=== PATIENT | female | born 1985 | race Hispanic/Latino ===

== ENCOUNTER 2023-04-29 11:06 | Observation (INO) | payer MEDICAID, SELFPAY ==
[2023-04-29] MEDS ORDERED: fentaNYL 50 mcg/mL 1 mL Vial ONE (11:47)
[2023-04-29 12:10] LABS: #Monocytes 0.6 thou/uL (0.11-0.59); #Neutrophils 7.8 thou/uL (1.40-6.50); %Basophils 0.2 % (0.0-1.0); %Lymphocytes 14.8 % (21.0-51.0); %Monocytes 6.4 % (0.0-10.0); %Neutrophils 78.4 % (42.0-75.0); Hematocrit 39.5 % (36.0-47.0); Hemoglobin 13.3 g/dL (12.0-16.0); Mean Corpuscular HGB CONC 33.7 g/dL (32.0-36.0); Mean Corpuscular Hemoglobin 29.8 pg (27.0-31.0); Mean Corpuscular Volume 88.6 fl (78.0-98.0); Mean Platelet Volume 9.4 fL (7.4-10.4); Platelet Count 430 10x3/uL (130-400); RBC Distribution Width 14.5 % (11.5-14.5); Red Blood Cell (RBC) Count 4.46 mill/uL (4.20-5.40); White Blood Cell (WBC) Count 9.9 10x3/uL (4.8-10.8)
[2023-04-29 12:26] LABS: BHCG - Serum Negative (NEGATIVE); Pregs Control Background? CLEAR/WHITE (CLR/WHITE); Pregs Control Bar Appear? YES (CONTROL BAR)
[2023-04-29 12:41] LABS: ALT (SGPT) 15 U/L (8-55); AST (SGOT) 18 U/L (5-34); Alkaline Phosphatase 77 U/L (40-110); Anion Gap 19 mmol/L (10-20); BUN (Urea Nitrogen) 16 mg/dL (7.0-18.7); Bilirubin, Total 0.6 mg/dL (0.2-1.2); Calc. Creatinine Clearance 0 mL/min (70-130); Calcium 9.4 mg/dL (7.8-10.44); Carbon Dioxide 19 mmol/L (22-29); Chloride 100 mmol/L (98-107); Estimated GFR 105; Globulin 3.2 g/dL (2.4-3.5); Glucose 76 mg/dL (70-105); Lipase 31 U/L (8-78); Potassium 3.9 mmol/L (3.5-5.1); Protein, Total 7.2 g/dL (6.0-8.3); Sodium 134 mmol/L (136-145)
[2023-04-29] MEDS ORDERED: Iopamidol-370 76% 500 ML MDV (1 ML CHARGE) ONE (12:47)
[2023-04-29] MEDS ORDERED: Morphine 4 MG/ML VIAL ONE ×2 (12:49→17:24)
[2023-04-29] MEDS ORDERED: Boostrix 0.5 ML (Tdap) VIAL (>/=7 yrs of age) ONE (14:21)
[2023-04-29] MEDS ORDERED: Ondansetron PF 4 MG/2 ML Vial ONE ×2 (14:21→17:24)
[2023-04-29] MEDS ORDERED: Ketorolac Tromethamine 30 MG/ML VIAL ONE (14:21)
[2023-04-29] MEDS ORDERED: Ipratropium/Albuterol 3 ML NEB NEB PRN (17:37)
[2023-04-29] MEDS ORDERED: hydrALAZINE 20 MG/ML VIAL SLOW IVP PRN (17:37)
[2023-04-29] MEDS ORDERED: Dextrose 50% Abboject 50 ML SYRINGE SLOW IVP PRN (17:37)
[2023-04-29] MEDS ORDERED: Dextrose 5% in Water 1,000 ML IV PRN (17:37)
[2023-04-29] MEDS ORDERED: Glucagon 1 MG/ML KIT IM PRN (17:37)
[2023-04-29] MEDS ORDERED: TETANUS, DIPHTHERIA TOX,ADULT (TDVAX) 0.5 ML VIAL IM ONE (17:37)
[2023-04-29 19:39] VITALS: BMI 25.9
[2023-04-29] MEDS: Sodium Chloride 0.9% 1,000 ML IV SCH (20:12)
[2023-04-29] MEDS: Morphine 2 MG/ML VIAL SLOW IVP PRN (20:12)
[2023-04-29] MEDS: Famotidine/PF 20 mg/2ml Vial SLOW IVP SCH (20:13)
[2023-04-29] MEDS: Ondansetron PF 4 MG/2 ML Vial IVP PRN (20:25)
[2023-04-29] MEDS ORDERED: Promethazine HCl 25 MG/ML VIAL IM SCH ×2 (22:30→22:45)
[2023-04-29] MEDS: traMADol HCl 50 MG TAB PO PRN (22:48)
[2023-04-29] MEDS: Acetaminophen 325 MG TAB PO SCH (23:37)
[2023-04-30] MEDS: Morphine 2 MG/ML VIAL SLOW IVP PRN ×2 (00:57→08:58)
[2023-04-30] MEDS: Ondansetron PF 4 MG/2 ML Vial IVP PRN (04:03)
[2023-04-30] MEDS: traMADol HCl 50 MG TAB PO PRN ×2 (04:06→14:35)
[2023-04-30] MEDS: Sodium Chloride 0.9% 1,000 ML IV SCH (04:06)
[2023-04-30] MEDS: Acetaminophen 325 MG TAB PO SCH ×2 (04:59→06:22)
[2023-04-30 06:36] LABS: #Neutrophils 8.7 thou/uL (1.40-6.50); %Basophils 0.3 % (0.0-1.0); %Monocytes 8.6 % (0.0-10.0); %Neutrophils 78.8 % (42.0-75.0); Hematocrit 38.7 % (36.0-47.0); Hemoglobin 12.8 g/dL (12.0-16.0); Mean Corpuscular HGB CONC 33.1 g/dL (32.0-36.0); Mean Corpuscular Hemoglobin 29.6 pg (27.0-31.0); Mean Corpuscular Volume 89.4 fl (78.0-98.0); Mean Platelet Volume 9.3 fL (7.4-10.4); Platelet Count 439 10x3/uL (130-400); RBC Distribution Width 14.8 % (11.5-14.5); Red Blood Cell (RBC) Count 4.33 mill/uL (4.20-5.40)
[2023-04-30 07:01] LABS: Anion Gap 16 mmol/L (10-20); BUN (Urea Nitrogen) 20 mg/dL (7.0-18.7); Calc. Creatinine Clearance 101 mL/min (70-130); Calcium 9.1 mg/dL (7.8-10.44); Carbon Dioxide 20 mmol/L (22-29); Chloride 105 mmol/L (98-107); Estimated GFR 100; Glucose 84 mg/dL (70-105); Potassium 3.9 mmol/L (3.5-5.1); Sodium 137 mmol/L (136-145)
[2023-04-30] MEDS: Famotidine/PF 20 mg/2ml Vial SLOW IVP SCH (08:59)
[2023-04-30] MEDS ORDERED: Senokot S 8.6-50 MG TAB PO SCH (09:00)
[2023-04-30 12:05] VITALS: BP 116/64; TEMP 98.9
== END 2023-04-30 15:53 | disposition home or self-care (01) ==
LOC: ERS 11:06 → EEVIPCON 11:06 → SURG A 16:33 → INTOOBSV 16:33
PROVIDERS: ADMIT Surgery; ATTEND Surgery
DX: K92.1 Melena (principal); Z90.49 Acquired absence of other specified parts of digestive tract; N83.209 Unspecified ovarian cyst, unspecified side
CPT/HCPCS: 36415; 70450; 70486; 71045; 71260; 72125; 72128; 72131; 72170; 74177; 80048; 80053; 83605; 83690; 84703; 85025; 86850; 86900; 86901; 90471; 90715; 93005; 96372; 96374; 96375; 96376; 97139; G0378; J1885; J2270; J2272; J2405; J2550; J3010; J7050; Q9967; S0028

== ENCOUNTER 2023-05-01 02:00 | Emergency (ER) | payer MEDICAID ==
[2023-05-01] MEDS ORDERED: Promethazine HCl 25 MG/ML VIAL ONE (02:42)
[2023-05-01] MEDS ORDERED: Ketorolac Tromethamine 30 MG/ML VIAL ONE (02:42)
[2023-05-01] MEDS ORDERED: Haloperidol Lactate 5 MG/ML VIAL ONE (04:09)
[2023-05-01 04:35] LABS: #Monocytes 1.2 thou/uL (0.11-0.59); #Neutrophils 7.2 thou/uL (1.40-6.50); %Basophils 0.3 % (0.0-1.0); %Eosinophils 0.3 % (0.0-10.0); %Lymphocytes 19.3 % (21.0-51.0); %Monocytes 11.6 % (0.0-10.0); %Neutrophils 68.2 % (42.0-75.0); Hematocrit 40.5 % (36.0-47.0); Hemoglobin 13.6 g/dL (12.0-16.0); Mean Corpuscular HGB CONC 33.6 g/dL (32.0-36.0); Mean Corpuscular Volume 89.2 fl (78.0-98.0); Mean Platelet Volume 9.4 fL (7.4-10.4); Platelet Count 412 10x3/uL (130-400); RBC Distribution Width 15.1 % (11.5-14.5); Red Blood Cell (RBC) Count 4.54 mill/uL (4.20-5.40); White Blood Cell (WBC) Count 10.5 10x3/uL (4.8-10.8)
[2023-05-01 04:42] LABS: Bilirubin Negative (Negative); Blood, Urine 1+ (Negative); CAUTI Indications for Culture Pelvic or flank pain; Clarity Clear (Clear); Glucose, Urine (Dipstick) Normal (Negative); Ketone, Urine Negative (Negative); Leukocyte Negative Leu/uL (Negative); Nitrite Negative (Negative); Protein, Urine (Dipstick) Negative (Neg-Trace); RBC/HPF 0-3 HPF (0-3); Specific Gravity, Urine 1.017 (1.002-1.036); Urobilinogen Normal mg/dL (Less than 2); WBC/HPF 0-3 HPF (0-3)
[2023-05-01 04:46] LABS: Bacteria/HPF 1+ HPF (None Seen)
[2023-05-01 04:47] LABS: Urine Culture Reflex No No
[2023-05-01 04:59] LABS: ALT (SGPT) 13 U/L (8-55); AST (SGOT) 20 U/L (5-34); Alkaline Phosphatase 62 U/L (40-110); Anion Gap 14 mmol/L (10-20); BUN (Urea Nitrogen) 13 mg/dL (7.0-18.7); Bilirubin, Total 0.4 mg/dL (0.2-1.2); Calc. Creatinine Clearance 0 mL/min (70-130); Calcium 9.3 mg/dL (7.8-10.44); Carbon Dioxide 21 mmol/L (22-29); Chloride 107 mmol/L (98-107); Estimated GFR 96; Glucose 101 mg/dL (70-105); Lipase 82 U/L (8-78); Potassium 4.5 mmol/L (3.5-5.1); Sodium 137 mmol/L (136-145)
== END 2023-05-01 05:29 | disposition home or self-care (01) ==
LOC: ERS 02:00
DX: R10.11 Right upper quadrant pain (principal); R10.12 Left upper quadrant pain; R10.31 Right lower quadrant pain; R10.32 Left lower quadrant pain
CPT/HCPCS: 36415; 80053; 81001; 83605; 83690; 85025; 96372; 99284; J1630; J1885; J2550

== ENCOUNTER 2023-05-05 18:35 | Inpatient (IN) | payer MEDICAID ==
[2023-05-05] MEDS ORDERED: Ketorolac Tromethamine 30 MG/ML VIAL ONE (20:45)
[2023-05-05] MEDS ORDERED: Acetaminophen 325 MG TAB ONE (20:45)
[2023-05-05] MEDS ORDERED: Cefepime 2 GM VIAL ONE (21:57)
[2023-05-05 22:11] LABS: ALT (SGPT) 39 U/L (8-55); AST (SGOT) 16 U/L (5-34); Albumin 4.2 g/dL (3.5-5.0); Alkaline Phosphatase 69 U/L (40-110); Anion Gap 12 mmol/L (10-20); BUN (Urea Nitrogen) 23 mg/dL (7.0-18.7); Bilirubin, Total Less than 0.2 mg/dL (0.2-1.2); Calc. Creatinine Clearance 0 mL/min (70-130); Calcium 9.3 mg/dL (7.8-10.44); Carbon Dioxide 22 mmol/L (22-29); Chloride 106 mmol/L (98-107); Estimated GFR 74; Globulin 2.9 g/dL (2.4-3.5); Glucose 100 mg/dL (70-105); Potassium 4.1 mmol/L (3.5-5.1); Protein, Total 7.1 g/dL (6.0-8.3); Sodium 136 mmol/L (136-145)
[2023-05-05 22:13] LABS: Delete Auto Diff?? YES; Hematocrit 39.9 % (36.0-47.0); Hemoglobin 13.3 g/dL (12.0-16.0); Manual Diff?? YES; Mean Corpuscular HGB CONC 33.3 g/dL (32.0-36.0); Mean Corpuscular Hemoglobin 30.3 pg (27.0-31.0); Mean Corpuscular Volume 90.9 fl (78.0-98.0); Mean Platelet Volume 10.1 fL (7.4-10.4); Platelet Count 366 10x3/uL (130-400); RBC Distribution Width 15.4 % (11.5-14.5); Red Blood Cell (RBC) Count 4.39 mill/uL (4.20-5.40); White Blood Cell (WBC) Count 7.8 10x3/uL (4.8-10.8)
[2023-05-05 22:22] LABS: BHCG - Serum Negative (NEGATIVE); Pregs Control Background? CLEAR/WHITE (CLR/WHITE); Pregs Control Bar Appear? YES (CONTROL BAR)
[2023-05-05] MEDS ORDERED: Vancomycin 1.5 GRAM/300 ML BAG 1.5 GM in Premix Bag 1 BAG IVPB SCH (22:30)
[2023-05-05 22:39] LABS: Acetaminophen Less than 10 mcg/mL (10.0-30.0); Alcohol Less than 10.0 mg/dL (Less than 10); Salicylate Less than 8.0 mg/dL (15.0-30.0)
[2023-05-05] MEDS ORDERED: Ondansetron PF 4 MG/2 ML Vial ONE (22:39)
[2023-05-05] MEDS ORDERED: traMADol HCl 50 MG TAB ONE (22:39)
[2023-05-05 23:05] LABS: Band 6 % (5-11); CellaVision Operator ID LAB.CLH1; Eosinophils 6 % (0-10); Lymphocytes 30 % (21-51); Monocytes 11 % (0-10); Neutrophil 46 % (42-75); Platelet Adequacy Comment Platelets Normal; Reactive Lymphocytes 2 % (0-10); Total Cell Count 101
[2023-05-06] MEDS ORDERED: fentaNYL 50 mcg/mL 1 mL Vial ONE (00:15)
[2023-05-06] MEDS ORDERED: Sodium Chloride 0.9% 1,000 ML IV SCH (03:30)
[2023-05-06 04:07] LABS: Amphetamine Not Detected (NotDetected); Barbiturates Screen Not Detected (NotDetected); Benzodiazepine Screen Not Detected (NotDetected); Cocaine Metabolite Screen Not Detected (NotDetected); Methadone Not Detected (NotDetected); Methamphetamine Not Detected (NotDetected); Opiate Screen Not Detected (NotDetected); Oxycodone Screen Not Detected (NotDetected); Phencyclidine (PCP) Not Detected (NotDetected); THC/Cannabinoid Screen Not Detected (NotDetected); Tricyclic Screen Not Detected (NotDetected)
[2023-05-06 04:19] LABS: Bilirubin Negative (Negative); Blood, Urine 1+ (Negative); CAUTI Indications for Culture Fever or rigors; Clarity Turbid (Clear); Glucose, Urine (Dipstick) Normal (Negative); Ketone, Urine Negative (Negative); Leukocyte Negative Leu/uL (Negative); Nitrite Negative (Negative); Protein, Urine (Dipstick) Negative (Neg-Trace); RBC/HPF 0-3 HPF (0-3); Specific Gravity, Urine 1.035 (1.002-1.036); Squamous Epithelial 0-3 HPF (0-3); Urobilinogen Normal mg/dL (Less than 2); WBC/HPF None Seen HPF (0-3)
[2023-05-06 04:20] LABS: Bacteria/HPF 2+ HPF (None Seen)
[2023-05-06 04:21] LABS: Urine Culture Reflex No No
[2023-05-06] MEDS ORDERED: Ketorolac Tromethamine 30 MG/ML VIAL IVP SCH (06:45)
[2023-05-06] MEDS ORDERED: Ketorolac Tromethamine 30 MG/ML VIAL ONE (06:46)
[2023-05-06] MEDS ORDERED: Calcium Carbonate 500 MG ChewTAB PO PRN (07:47)
[2023-05-06] MEDS ORDERED: Ondansetron PF 4 MG/2 ML Vial IVP PRN (07:47)
[2023-05-06] MEDS ORDERED: Senokot S 8.6-50 MG TAB PO PRN (07:47)
[2023-05-06] MEDS ORDERED: Acetaminophen 325 MG TAB PO PRN (07:47)
[2023-05-06] MEDS ORDERED: carBAMazepine 200 MG TAB PO SCH (09:00)
[2023-05-06] MEDS ORDERED: HYDROcodone/Acetaminophen 5/325 mg Tablet ONE ×2 (09:22→13:47)
[2023-05-06] MEDS ORDERED: Ziprasidone 20 MG CAP ONE (09:22)
[2023-05-06] MEDS ORDERED: Ondansetron PF 4 MG/2 ML Vial ONE (09:26)
[2023-05-06] MEDS: HYDROcodone/Acetaminophen 5/325 mg Tablet PO PRN ×4 (09:30→22:44)
[2023-05-06] MEDS: carBAMazepine 200 MG TAB PO SCH ×2 (09:36→21:02)
[2023-05-06] MEDS ORDERED: Morphine 4 MG/ML VIAL SLOW IVP SCH (10:30)
[2023-05-06] MEDS ORDERED: Morphine 4 MG/ML VIAL ONE (10:30)
[2023-05-06] MEDS ORDERED: Ondansetron ODT 4 MG TAB ONE (12:37)
[2023-05-06] MEDS ORDERED: Morphine 2 MG/ML VIAL SLOW IVP PRN (14:00)
[2023-05-06] MEDS: Vancomycin 1 GM in Premix Bag 1 BAG IVPB SCH (22:43)
[2023-05-06] MEDS: Cefepime 1 GM in Sodium Chloride 0.9% 100 ML IVPB SCH (22:43)
[2023-05-07] MEDS: HYDROcodone/Acetaminophen 5/325 mg Tablet PO PRN (07:35)
[2023-05-07 08:08] LABS: #Basophils 0.1 thou/uL (0.0-0.2); #Eosinphils 0.2 thou/uL (0.0-0.7); #Monocytes 0.5 thou/uL (0.11-0.59); #Neutrophils 2.2 thou/uL (1.40-6.50); %Basophils 1.2 % (0.0-1.0); %Eosinophils 3.4 % (0.0-10.0); %Lymphocytes 42.3 % (21.0-51.0); %Monocytes 9.7 % (0.0-10.0); Hematocrit 41.4 % (36.0-47.0); Hemoglobin 13.2 g/dL (12.0-16.0); Mean Corpuscular HGB CONC 31.9 g/dL (32.0-36.0); Mean Corpuscular Hemoglobin 30.4 pg (27.0-31.0); Mean Corpuscular Volume 95.4 fl (78.0-98.0); Platelet Count 319 10x3/uL (130-400); RBC Distribution Width 15.8 % (11.5-14.5); Red Blood Cell (RBC) Count 4.34 mill/uL (4.20-5.40)
[2023-05-07 08:32] LABS: ALT (SGPT) 47 U/L (8-55); AST (SGOT) 26 U/L (5-34); Albumin 3.5 g/dL (3.5-5.0); Alkaline Phosphatase 64 U/L (40-110); Anion Gap 10 mmol/L (10-20); BUN (Urea Nitrogen) 12 mg/dL (7.0-18.7); Bilirubin, Total 0.2 mg/dL (0.2-1.2); CRP (Inflammatory) Less than 0.50 mg/dL (= or < 0.5); Calc. Creatinine Clearance 103 mL/min (70-130); Calcium 8.8 mg/dL (7.8-10.44); Carbon Dioxide 21 mmol/L (22-29); Chloride 110 mmol/L (98-107); Estimated GFR 102; Globulin 2.8 g/dL (2.4-3.5); Glucose 85 mg/dL (70-105); Potassium 4.9 mmol/L (3.5-5.1); Protein, Total 6.3 g/dL (6.0-8.3); Sodium 136 mmol/L (136-145)
[2023-05-07 08:40] LABS: Vancomycin, Trough 12.7 ug/mL
[2023-05-07] MEDS: carBAMazepine 200 MG TAB PO SCH ×2 (08:51→20:11)
[2023-05-07] MEDS ORDERED: Cefepime 1 GM VIAL ONE (09:25)
[2023-05-07] MEDS: Cefepime 1 GM in Sodium Chloride 0.9% 100 ML IVPB SCH ×2 (09:28→22:52)
[2023-05-07] MEDS: Vancomycin 1 GM in Premix Bag 1 BAG IVPB SCH ×2 (10:38→22:53)
[2023-05-07] MEDS: Morphine 2 MG/ML VIAL SLOW IVP PRN ×3 (14:34→22:48)
[2023-05-07 15:50] VITALS: BMI 24.5
[2023-05-08] MEDS: Morphine 2 MG/ML VIAL SLOW IVP PRN ×3 (02:53→11:46)
[2023-05-08] MEDS: Cefepime 1 GM in Sodium Chloride 0.9% 100 ML IVPB SCH (07:46)
[2023-05-08] MEDS: carBAMazepine 200 MG TAB PO SCH (07:47)
[2023-05-08] MEDS: Vancomycin 1 GM in Premix Bag 1 BAG IVPB SCH (07:48)
[2023-05-08 08:57] LABS: Vancomycin, Trough 16.2 ug/mL
[2023-05-08] MEDS ORDERED: Benztropine 1 MG TAB PO SCH (09:00)
[2023-05-08 13:16] VITALS: BP 100/61; TEMP 98.5
== END 2023-05-08 17:36 | disposition home or self-care (01) | DRG 603 ==
LOC: ERS 18:35 → ERHOLD 05-06 03:12 → T4-A 05-06 03:15
PROVIDERS: ADMIT Internal Medicine; ATTEND Internal Medicine
DX: L03.116 Cellulitis of left lower limb (principal); L97.122 Non-pressure chronic ulcer of left thigh with fat layer exposed; G40.909 Epilepsy, unspecified, not intractable, without status epilepticus; F25.0 Schizoaffective disorder, bipolar type; S70.362A Insect bite (nonvenomous), left thigh, initial encounter; Z90.49 Acquired absence of other specified parts of digestive tract; Z88.0 Allergy status to penicillin; Z79.899 Other long term (current) drug therapy
CPT/HCPCS: 36415; 80053; 80202; 80306; 80307; 81001; 83605; 84145; 84703; 85025; 86140; 87040; 87070; 87205; 93005; 97139; J0692; J1650; J1885; J2270; J2272; J2405; J3010; J3370; J3370-JW; J3490; J7050; Q0162

== ENCOUNTER 2023-05-25 09:16 | Emergency (ER) | payer MEDICAID | END 2023-05-25 10:00 | disposition home or self-care (01) | LOC: ERS 09:16 | DX: S81.802A Unspecified open wound, left lower leg, initial encounter (principal); X58.XXXA Exposure to other specified factors, initial encounter | CPT/HCPCS: 99282 ==